=== PATIENT | male | born 1965 | race Hispanic/Latino ===

== ENCOUNTER → 2024-07-04 | Outpatient (CLI) | payer OTHER, MEDICARE ==
[~2024-07-04] MED LIST: IOHEXOL 350 MG/ML 100ML INFUS..BTL IV ONE
--- NOTE | 2024-07-04 13:35 | HMCIMG ---
CT CARDIAC ANGIO W/CONT. CCTA HISTORY: Chest pain COMPARISON: 04/10/2023 TECHNIQUE: Multiple sequential axial images of the chest were obtained along with the CT angiogram of the chest study. Patient was given 100 cc of Omnipaque through intravenous route. FINDINGS: There is no evidence of pulmonary nodule or parenchymal disease. No pleural effusion or pericardial effusion is seen. There is no evidence of pneumothorax. There are normal size mediastinal and hilar lymph nodes. The heart is not enlarged. Degenerative changes of the thoracolumbar spine are present. IMPRESSION: 1. No evidence of pulmonary nodule or effusion is seen. Please see CT angiogram report of coronary arteries.
== END | disposition home or self-care (01) ==
LOC: RAH 11:08
PROVIDERS: ATTEND Student in an Organized Health Care Education/Training Program
DX: R07.9 Chest pain, unspecified (principal); M47.815 Spondylosis without myelopathy or radiculopathy, thoracolumbar region
CPT/HCPCS: 75574; Q9967

== ENCOUNTER 2024-07-24 07:30 | Day surgery (SDC) | payer OTHER, MEDICARE ==
[2024-07-22 14:30] LABS: BASOPHILS # (AUTO) 0.07 K/uL (0.00-0.20); BASOPHILS % (AUTO) 0.8 % (0.0-5.0); EOSINOPHILS % (AUTO) 5.5 % (0.0-8.0); HEMATOCRIT 49.9 % (42-54); IMMATURE GRANULOCYTE ABSOLUTE 0.03 K/uL (0-1); LYMPHOCYTES # (AUTO) 2.4 K/uL (1.0-4.8); LYMPHOCYTES % (AUTO) 26.7 % (21.0-51.0); MEAN CORPUSCULAR HEMOGLOBIN 29.8 pg (27.0-33.0); MEAN CORPUSCULAR HGB CONC 33.5 g/dL (32.0-36.0); MEAN CORPUSCULAR VOLUME 88.9 fL (79-99); MONOCYTES # (AUTO) 0.7 K/uL (0.1-1.0); MONOCYTES % (AUTO) 7.3 % (3.0-13.0); NEUTROPHILS # (AUTO) 5.4 K/uL (1.8-7.7); NEUTROPHILS % (AUTO) 59.4 % (40.0-77.0); PLATELET COUNT (AUTO) 246 K/uL (130-400); RED BLOOD CELL COUNT(AUTO) 5.61 MIL/uL (4.50-6.20); RED CELL DISTRIBUTION WIDTH 12.1 % (11.0-15.5); WHITE BLOOD COUNT (AUTO) 9.1 K/uL (4.8-10.8)
[2024-07-22 14:37] LABS: POTASSIUM 4.3 mmol/L (3.5-5.1)
[2024-07-22 14:40] LABS: INR 1.02 (0.85-1.15); PROTHROMBIN TIME 11.4 SEC (9.6-11.6)
[2024-07-22 14:41] VITALS: BP 153/66; PULSE 67; RESP 18; TEMP 97.5
[2024-07-22 14:41] LABS: PARTIAL THROMBOPLASTIN TIME 32.5 SEC (26.3-35.5)
--- NOTE | 2024-07-22 15:38 | NUR ---
VERIFY CALLED DR Curry MEDLEY TO VERIFY MEDS. PER DR MEDLEY PT TO HOLD STATINS STARTING TODAY AND HOLD ELIQUIS AND PLAVIX 24 HRS PRIOR TO SELENA
[~2024-07-24] VITALS: Ht 167.6 cm; Wt 91.9 kg
[2024-07-24] VITALS (7 sets, daily range): BP systolic 119–132; BP diastolic 60–74; PULSE 59–66; RESP 13–15; TEMP 97.3–97.5
[~2024-07-24 07:30] MED LIST changes: +APIX5TAB PO; +ASPI-1443 PO; +ATOR-2 PO; +CLOP75TA32 PO; +DAPA1TAB5 PO; +EVOL140S2 SQ; -IOHEXOL 350 MG/ML 100ML INFUS..BTL IV ONE; +LOSA50TA64 PO; +MECL-226 PO; +METO-391 PO; +PIOG30TA70 PO; +ROSU40TA88 PO; +TAMS-1 PO; +TIRZ7.5P SQ; +TRESIBA SQ
[2024-07-24] MEDS: 0.9%NACL 1000ML 1,000 ML IV SCH (09:37)
[2024-07-24] MEDS: LIDOCAINE HCL 2% VISCOUS 15 ML UDCUP PO ONE (09:37)
[2024-07-24] MEDS: MIDAZOLAM HCL 1 MG/ML 2ML VIAL IVP ONE (09:37)
[2024-07-24] MEDS: FENTanyl CITRate PF 50 MCG/1 ML 2ML VIAL IVP ONE (09:38)
--- NOTE | 2024-07-24 10:14 | HMCSR ---
APPROVED REPORT EXAM: Transesophageal echocardiogram with color flow Doppler. INDICATION ICD: I822.220 PROCEDURE After obtaining informed consent, patient underwent transesophageal echo in the daypatient unit. 15 mL 2% Viscous Lidocaine was given as a topical anesthetic prior to the administration of the consc ious sedation. Type of Sedation: Conscious Sedation Sedation was administered by Please refer to medication administration record. . Sedation was achieved with Please refer to medication administration record. intravenously. Transesophageal probe was inserted and advanced into esophagus without difficulty by Sarah Mott MD . Throughout the procedure, the blood pressure, pulse oximetry, cardiac rhythm, and rate were monitored . The patient tolerated the procedure without adverse effects. Recovery from conscious sedation was une ventful and vital signs were stable. Left Ventricle The left ventricle is normal size. There is normal left ventricular wall thickness. LVEF is 50-55%. Right Ventricle The right ventricle is normal size. The right ventricular systolic function is normal. Atria The left atrium size is normal. No left atrial appendage thrombus noted. The right atrium size is nor mal. Aortic Valve The aortic valve is normal in structure. No aortic regurgitation is present. There is no aortic valvu lar stenosis. Mitral Valve The mitral valve is normal in structure. There is trace of mitral valve regurgitation noted. There is no mitral valve stenosis. Tricuspid Valve The tricuspid valve is normal in structure. There is trace of tricuspid valve regurgitation noted. Pulmonic Valve The pulmonary valve is normal in structure. There is no pulmonic valvular regurgitation. Great Vessels The aortic root is normal in size. Ascending aorta is normal in size. Descending aorta is normal in s ize. Pericardium There is no pericardial effusion. Conclusion The left ventricle is normal size. LVEF is 50-55%. The right ventricle is normal size. The right ventricular systolic function is normal. The left atrium size is normal. No left atrial appendage thrombus noted. The right atrium size is normal. There is trace of mitral valve regurgitation noted. There is trace of tricuspid valve regurgitation noted. There is no pericardial effusion.
== END 2024-07-24 10:35 | disposition home or self-care (01) ==
LOC: DAH 07:30 → EDSTATUS 14:00
PROVIDERS: ATTEND Student in an Organized Health Care Education/Training Program
DX: I82.220 Acute embolism and thrombosis of inferior vena cava (principal); I25.10 Atherosclerotic heart disease of native coronary artery without angina pectoris; R94.31 Abnormal electrocardiogram [ECG] [EKG]; R07.9 Chest pain, unspecified; E11.51 Type 2 diabetes mellitus with diabetic peripheral angiopathy without gangrene; R06.02 Shortness of breath; R05.9 Cough, unspecified; I10 Essential (primary) hypertension; E78.5 Hyperlipidemia, unspecified; E11.9 Type 2 diabetes mellitus without complications; Z79.82 Long term (current) use of aspirin; Z79.84 Long term (current) use of oral hypoglycemic drugs; Z79.899 Other long term (current) drug therapy; Z98.890 Other specified postprocedural states
CPT/HCPCS: 80048; 85025; 85610; 85730; 36415; 82948; 93325; 93312; J3010; J7030; J2250; A4615; A4215; A4223 ×3; A4657; A7002; A4222; A4221; A4663; A4216; A4606; 93306; 99152; G0500